=== PATIENT | male | born 1950 | race Caucasian/White ===

== ENCOUNTER 2024-10-31 06:21 | Day surgery (SDC) | payer MEDICARE, SELFPAY ==
[2024-10-31 09:12] LABS: Glucose - Point of Care 93 mg/dl (70-99)
== END 2024-10-31 10:28 | disposition home or self-care (01) ==
LOC: GI 06:21
PROVIDERS: ATTENDING PHYSICIAN Internal Medicine Gastroenterology
DX: Z12.11 Encounter for screening for malignant neoplasm of colon (principal); Z86.0100 Personal history of colon polyps, unspecified; K64.8 Other hemorrhoids; K57.30 Diverticulosis of large intestine without perforation or abscess without bleeding; D12.0 Benign neoplasm of cecum; D12.5 Benign neoplasm of sigmoid colon
CPT/HCPCS: 45380; 88305; 82962

== ENCOUNTER → 2025-02-07 14:43 | Outpatient (REF) | payer MEDICARE, SELFPAY | LOC: HWRAD 14:43 | PROVIDERS: ATTENDING PHYSICIAN Family Medicine | DX: Z48.02 Encounter for removal of sutures (principal); E04.1 Nontoxic single thyroid nodule | CPT/HCPCS: 76536 ==

== ENCOUNTER → 2025-03-22 08:30 | Outpatient (REF) | payer MEDICARE, SELFPAY ==
[2025-03-22 08:39] VITALS: BP 178/91; BP_SYST 61
== END ==
LOC: RADI 08:30
PROVIDERS: ATTENDING PHYSICIAN Family Medicine
DX: E04.1 Nontoxic single thyroid nodule (principal)
CPT/HCPCS: 10005; 88173